=== PATIENT | male | born 1980 | race African-American/Black ===

== ENCOUNTER 2020-09-24 09:55 | Inpatient (IN) ==
[2020-09-24] MEDS ORDERED: NALOXONE 0.4 MG/ML VIAL ONE (10:23)
[2020-09-24] MEDS: NALOXONE 0.4 MG/ML VIAL IV PRN ×2 (10:26→10:52)
[2020-09-24 11:13] LABS: Basophils # 0.1 10*3/uL (0.0-0.2); Basophils % 0.4 % (0.0-0.8); Eosinophils # 0.2 10*3/uL (0.0-0.87); Eosinophils % 1.8 % (0.00-10.9); Hematocrit 47.6 VOL% (42.0-52.0); Hemoglobin 14.9 GM/DL (14.0-18.0); Immature Granulocytes % 0.5 %; Immature Granulocytes Absolute 0.06 #; Lymphocytes # 1.6 10*3/uL (1.4-4.0); Lymphocytes % 12.7 % (21.2-54.2); Mean Corpuscular HGB Conc 31.3 GM/DL (32-36); Mean Corpuscular Volume 85.2 FL (87-102); Mean Platelet Volume 9.4 FL (9.6-12.0); Monocytes % 5.6 % (1.7-12.7); Platelet Count 355 T/CUMM (130-400); Red Blood Count 5.59 MC/CUMM (3.8-5.5); Red Cell Distribution Width 13.8 % (9.3-17.3); White Blood Count 12.3 T/CUMM (4-12)
[2020-09-24] MEDS ORDERED: DEXTROSE 5% IV PRN (11:22)
[2020-09-24] MEDS ORDERED: NALOXONE IV PRN (11:22)
[2020-09-24 11:35] LABS: Alanine Aminotransferase 31 U/L (16-61); Alkaline Phosphatase 76 U/L (45-117); Aspartate Amino Transferase 28 U/L (0-37); Bilirubin,Total < 0.39 MG/DL (0.2-1.0); Blood Urea Nitrogen 13 MG/DL (7-18); Calcium 8.5 MG/DL (8.5-10.1); Carbon Dioxide 26 MMOL/L (21-32); Estimated Glom Filtration Rate 168 ML/MIN; Glucose 115 MG/DL (74-106); Osmolality,Calculated 275.7 MOS/KG (273-304); Potassium 3.8 MMOL/L (3.5-5.1); Sodium 138 MMOL/L (136-145); Total Protein 7.1 G/DL (6.4-8.2)
[2020-09-24 11:45] LABS: Eosinophils 1 % (0-10); Lymphocytes 16 % (20-55); Platelet Estimate Normal; Segmented Neutrophils 76 % (50-85); Total Cells Counted 100
[2020-09-24 11:46] LABS: Anisocytosis Slight; Macrocytosis Slight
[2020-09-24 11:52] LABS: Salicylate 3.5 MG/DL (2.8-20)
[2020-09-24 11:54] LABS: Acetaminophen < 2.0 UG/ML (10-30)
[2020-09-24 12:06] LABS: Barbiturates Screen,Urine Negative (Negative); Benzodiazepines Screen,Urine Negative (Negative); Cannabinoid Screen,Urine Negative (Negative); Opiate Screen,Urine Negative (Negative); Phencyclidine Screen,Urine Negative (Negative)
[2020-09-24] MEDS ORDERED: ONDANSETRON 4 MG/2 ML VIAL IV PRN (13:02)
[2020-09-24] MEDS ORDERED: ALBUTEROL 2.5 MG/3 ML NEB RESP TX PRN (13:02)
[2020-09-24] MEDS: LACTATED RINGERS 1,000 ML IV SCH (13:30)
[2020-09-24] MEDS: PANTOPRAZOLE 40 MG VIAL IV SCH (13:30)
[2020-09-24] MEDS: ENOXAPARIN 40 MG/0.4 ML SYRINGE SUBCUT SCH (22:40)
[2020-09-25] MEDS: LACTATED RINGERS 1,000 ML IV SCH ×3 (00:41→21:40)
[2020-09-25 04:21] LABS: Basophils % 0.3 % (0.0-0.8); Eosinophils # 0.2 10*3/uL (0.0-0.87); Eosinophils % 1.2 % (0.00-10.9); Hematocrit 44.1 VOL% (42.0-52.0); Hemoglobin 14.2 GM/DL (14.0-18.0); Immature Granulocytes % 0.4 %; Immature Granulocytes Absolute 0.05 #; Lymphocytes # 3.1 10*3/uL (1.4-4.0); Lymphocytes % 24.8 % (21.2-54.2); Mean Corpuscular HGB Conc 32.2 GM/DL (32-36); Mean Platelet Volume 9.1 FL (9.6-12.0); Monocytes % 8.7 % (1.7-12.7); Neutrophils % 64.6 % (38.7-73.9); Platelet Count 335 T/CUMM (130-400); Red Blood Count 5.25 MC/CUMM (3.8-5.5); Red Cell Distribution Width 13.8 % (9.3-17.3); White Blood Count 12.4 T/CUMM (4-12)
[2020-09-25 04:50] LABS: Albumin 3.4 G/DL (3.4-5.0); Bilirubin,Total 0.9 MG/DL (0.2-1.0); Calcium 8.3 MG/DL (8.5-10.1); Osmolality,Calculated 276.4 MOS/KG (273-304); Potassium 3.6 MMOL/L (3.5-5.1); Total Protein 6.6 G/DL (6.4-8.2)
[2020-09-25] MEDS ORDERED: KETOROLAC 30 MG/1 ML VIAL IV ONE (05:15)
[2020-09-25] MEDS ORDERED: ACETAMINOPHEN 500 MG TABLET PO PRN (07:38)
[2020-09-25] MEDS: PANTOPRAZOLE 40 MG VIAL IV SCH (15:00)
[2020-09-25] MEDS: ENOXAPARIN 40 MG/0.4 ML SYRINGE SUBCUT SCH (21:39)
[2020-09-26] MEDS: LACTATED RINGERS 1,000 ML IV SCH (07:53)
[2020-09-26 11:46] VITALS: BP 132/80
[2020-09-26] MEDS: PANTOPRAZOLE 40 MG VIAL IV SCH (13:16)
== END 2020-09-26 15:00 | disposition home or self-care (01) | DRG 917 ==
LOC: N.ED 09:55 → N.EDINP 13:02 → SUATTDRO 13:02 → N.ICU 13:28 → N.4E 09-25 13:18
PROVIDERS: ADMIT Internal Medicine; ATTEND Hospitalist